=== PATIENT | female | born 1990 | race Caucasian/White ===

== ENCOUNTER 2019-09-02 12:23 | Emergency (ER) | payer OTHER ==
[~2019-09-02] VITALS: Ht 154.9 cm; Wt 60.8 kg
[2019-09-02] MEDS ORDERED: SENNA-DOCUSATE1 EAC1 PO (14:05)
[2019-09-02] MEDS ORDERED: NORCO 5-325 TA1 EAC1 PO (14:05)
[2019-09-02] MEDS ORDERED: IBUPROFEN 600600 M1 PO (14:05)
[2019-09-02 14:20] VITALS: BP 108/49
== END 2019-09-02 14:40 | disposition home or self-care (01) ==
LOC: ER 12:23
DX: S43.102A Unspecified dislocation of left acromioclavicular joint, initial encounter (principal); W18.39XA Other fall on same level, initial encounter; Y93.74 Activity, frisbee; Y92.89 Other specified places as the place of occurrence of the external cause; Y99.8 Other external cause status